=== PATIENT | female | born 1970 | race Caucasian/White ===

== ENCOUNTER 2017-05-08 13:56 | Outpatient (CLI) ==
[2014-12-19 15:42] VITALS: BMI 39.1
--- NOTE | 2017-05-08 15:02 | CT ---
EXAM: CT abdomen pelvis without contrast HISTORY: Back pain COMPARISON: None TECHNIQUE: CT abdomen pelvis performed without intravenous contrast. Coronal and sagittal reformatt ed images obtained. FINDINGS: Lung bases clear. No free air. No acute abnormalities of the bones. Degenerative change in the spine. Heart normal in size. Evaluation organ parenchyma limited without contrast. Liver a ppears normal. Patient status post cholecystectomy with two peripherally calcified structures in the gallbladder fossa measuring 0.4 cm likely gallstones. Pancreas appears normal. Spleen appears norm al. Adrenals appear normal. Small cyst right inferior kidney measuring water attenuation on barnard l image 75. No hydronephrosis or nephrolithiasis. No calculi visualized in normal course of the ure ters. Bladder grossly unremarkable. There is a unilocular cyst or follicle in the right ovary measu ring 2.8 cm. Aorta normal in caliber. Mild atherosclerosis. No lymphadenopathy or ascites. Minima l fat-containing periumbilical hernia. Stomach appears normal. No dilated loops small bowel. Appen cami appears normal. Colon unremarkable. No inflammatory stranding identified in the abdomen pelvis IMPRESSION: 1. No acute abnormality identified in the abdomen or pelvis. 2. No hydronephrosis or nephrolithiasis. 3. Status post cholecystectomy. Two residual gallstones present in the fossa. 4. 2.8 cm right ovarian cyst or follicle.
== END 2017-05-08 13:57 | disposition home or self-care (01) ==
LOC: RAD 13:56
PROVIDERS: ATTEND Nurse Practitioner Family
DX: M54.5 Low back pain (principal)
CPT/HCPCS: 74176